=== PATIENT | male | born 1960 | race Caucasian/White ===

== ENCOUNTER 2019-02-16 19:15 | Emergency (ER) | payer OTHER, MEDICAID ==
[~2019-02-16] VITALS: Ht 185.4 cm; Wt 112.9 kg
[2019-02-16 19:33] VITALS: Ht 185.4 cm; Wt 112.9 kg
[2019-02-16 20:28] LABS: BASOPHIL % 0.6 % (0-2); PLATELET COUNT 221 x10^3mcL (130-400); RED CELL DISTRIBUTION WIDTH 13.6 % (11.5-14.5)
[2019-02-16 20:39] LABS: CALCIUM 9.4 mg/dL (8.5-10.1); CREATININE SERUM 1.4 mg/dL (0.7-1.3); POTASSIUM SERUM 4.5 mmol/L (3.5-5.1)
[2019-02-16 20:43] LABS: BILIRUBIN TOTAL 0.3 mg/dL (0.20-1.00); TOTAL PROTEIN, SERUM 7.5 g/dL (6.4-8.2)
[2019-02-16 20:45] LABS: ALBUMIN 2.9 g/dL (3.4-5.0)
[2019-02-16 23:03] VITALS: BP 183/109
== END 2019-02-16 23:03 | disposition short-term general hospital (02) ==
LOC: ED 19:15
PROVIDERS: Emergency Medicine
DX: N13.9 Obstructive and reflux uropathy, unspecified (principal); Z88.2 Allergy status to sulfonamides; Z88.8 Allergy status to other drugs, medicaments and biological substances
CPT/HCPCS: 36415